=== PATIENT | female | born 1960 | race Hispanic/Latino ===

== ENCOUNTER 2017-05-28 02:00 | Emergency (ER) | payer SELFPAY ==
[2017-05-28] MEDS ORDERED: SODIUM CHLORIDE 0.9% 1000ML 1,000 ML IVS ONE (02:13)
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
[2017-05-28 02:32] VITALS: TEMP 98.8
--- NOTE | 2017-05-28 02:41 | CT ---
Procedure: CT HEAD WITHOUT IV CONTRAST Exam Date: 05/28/2017 Ordering Provider: Wing Larios Clinical Indication: ams, dizziness, fall with headache Comparison: None Technique: Using a helical scanner, sequential axial imaging of the brain was obtained without the administration of intravenous contrast. The exam was obtained from the skull base to vertex. This exam was performed according to our departmental dose optimization program which includes use of automated exposure control, adjustment of the mA and/or kV according to patient size and/or use of iterative reconstruction technique. Findings: Ventricular size and configuration are normal. There is no midline shift or hydrocephalus. There is no acute intracranial hemorrhage or mass effect. There is no acute infarct. Cortical rodriguez matter, subcortical white matter, and periventricular white matter have normal appearance. The calvarium is intact. There is no fracture. There is no lytic or sclerotic lesion. The visualized paranasal sinuses and mastoid air cells are unremarkable. IMPRESSION: No acute intracranial abnormality demonstrated. 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
[2017-05-28] MEDS ORDERED: POTASSIUM CHLORIDE INJ 40 MEQ 40 MEQ in SODIUM CHLORIDE 0.9% 250ML 250 ML IVPB ONE (02:50)
[2017-05-28] MEDS ORDERED: POTASSIUM CHLORIDE ELIXIR 20 MEQ/15 ML UD PO ONE (02:50)
[2017-05-28] MEDS ORDERED: SODIUM CHLORIDE 0.9% 250ML 250 ML ONE (03:02)
[2017-05-28] MEDS ORDERED: POTASSIUM CHLORIDE 40mEq 20ML VIAL ONE (03:02)
[2017-05-28 03:36] VITALS: O2SAT 99
[2017-05-28 08:28] VITALS: BP 161/83
== END 2017-05-28 08:51 | disposition home or self-care (01) ==
LOC: ER 02:00
DX: T88.7XXA Unspecified adverse effect of drug or medicament, initial encounter (principal); E87.6 Hypokalemia; W19.XXXA Unspecified fall, initial encounter; Y92.099 Unspecified place in other non-institutional residence as the place of occurrence of the external cause
CPT/HCPCS: 36415; 70450; 80053; 80156; 80307; 80320; 81001; 82550; 82553; 83735; 84443; 84484; 84703; 85025; 85651; J3480; J7030; J7050

== ENCOUNTER → 2017-06-01 | Outpatient (CLI) | payer SELFPAY | END | disposition home or self-care (01) | LOC: LAB.O 12:04 | PROVIDERS: ATTEND Nurse Practitioner Family | DX: G50.0 Trigeminal neuralgia (principal); R94.6 Abnormal results of thyroid function studies; E87.6 Hypokalemia ==

== ENCOUNTER 2017-06-06 09:38 | Emergency (ER) | payer SELFPAY ==
--- NOTE | 2017-06-06 10:18 | ED.PDOC ---
History of Present Illness - General Chief Complaint: Dental/Mouth Stated Complaint: Left facial swelling Time Seen by Provider: 06/06/17 10:00 Source: RN notes reviewed Exam Limitations: language barrier, other - History of Present Illness Initial Comments: 56 year Female presents to the ED with chief complaints of pain in the Left side of the face for the past 15 days She has been diagnosed with Trigeminal Neuralgia approximately 9 years ago She has been treated with Gabapentin and Tegretol But she states it was helping but not in the past 2 weeks Timing/Duration: intermittent Improving Factors: nothing Worsening Factors: cold therapy, eating Associated Symptoms: denies symptoms Allergies/Adverse Reactions: Allergies NO KNOWN ALLERGY Allergy (Verified 05/28/17 02:32) Home Medications: Ambulatory Orders Gabapentin [Neurontin] 100 mg PO BID 08/17/15 Carbamazepine [Tegretol] 200 mg PO BID 06/06/17 Tramadol HCl [Ultram] 50 mg PO Q6H PRN #30 tab 06/06/17 Review of Systems - Review of Systems Constitutional: States: no symptoms reported EENTM: States: see HPI Respiratory: States: no symptoms reported Cardiology: States: no symptoms reported Gastrointestinal/Abdominal: States: no symptoms reported Genitourinary: States: no symptoms reported Musculoskeletal: States: no symptoms reported Skin: States: no symptoms reported Neurological: States: no symptoms reported Endocrine: States: no symptoms reported Hematologic/Lymphatic: States: no symptoms reported Past Medical History (General) - Patient Medical History Hx Stroke: No Hx Dementia: No Hx Asthma: No Hx of COPD: No Hx Cardiac Disorders: No Hx Congestive Heart Failure: No Hx Pacemaker: No Hx Hypertension: No Hx Thyroid Disease: No Hx Diabetes: No Hx Gastroesophageal Reflux: No Hx Renal Disease: No Hx Cancer: No Hx of HIV: No Hx Hepatitis C: No Hx MRSA: No - Vaccination History Hx Tetanus, Diphtheria Vaccination: No Hx Influenza Vaccination: No Hx Pneumococcal Vaccination: No - Social History Hx Tobacco Use: No Hx Chewing Tobacco Use: No Hx Alcohol Use: No Hx Substance Use: No Hx Substance Use Treatment: No Hx Depression: No Hx Physical Abuse: No Hx Emotional Abuse: No Hx Suspected Abuse: No - Female History Patient : No Family Medical History - Family History Father Family History: Unknown Hx Family Asthma: No Hx Family Congestive Heart Failure: No Hx Family Hypertension: No Hx Family Stroke: No Hx Cardiac Disease: No Physical Exam - Physical Exam General Appearance: Alert, Obvious distress, Well Developed, Well Groomed, Well Hydrated Eye Exam: bilateral normal Ears, Nose, Throat: hearing grossly normal Neck: non-tender, full range of motion, supple Respiratory: chest non-tender, lungs clear, normal breath sounds, no respiratory distress, no accessory muscle use Cardiovascular/Chest: normal peripheral pulses, regular rate, rhythm, no edema, no gallop, no JVD, no murmur Peripheral Pulses: radial,right: 2+, radial,left: 2+, femoral,right: 2+, femoral ,left: 2+, dorsalis pedis,right: 2+, dorsalis pedis,left: 2+ Gastrointestinal/Abdominal: normal bowel sounds, non tender, soft, no organomegaly, no pulsatile mass Back Exam: normal inspection, no CVA tenderness, no vertebral tenderness Extremity: normal range of motion, non-tender, normal inspection 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 Copy, Patient Portal Self Enrollment Instructions: DI for Mouth Pain Prescriptions: Tramadol HCl [Ultram] 50 mg PO Q6H PRN #30 tab PRN Reason: Pain Home Medications: Ambulatory Orders Gabapentin [Neurontin] 100 mg PO BID 08/17/15 Carbamazepine [Tegretol] 200 mg PO BID 06/06/17 Tramadol HCl [Ultram] 50 mg PO Q6H PRN #30 tab 06/06/17
[2017-06-06] MEDS ORDERED: KETOROLAC TROMETHAMINE INJ 60 MG/2 ML VIAL IM ONE (10:19)
[2017-06-06] MEDS ORDERED: DEXAMETHASONE INJ 10 MG/ML VIAL IM ONE (10:21)
[2017-06-06 11:39] VITALS: BP 134/78; TEMP 97.5; O2SAT 98
== END 2017-06-06 11:18 | disposition home or self-care (01) ==
LOC: ER 09:38
DX: G50.0 Trigeminal neuralgia (principal); Z79.899 Other long term (current) drug therapy
CPT/HCPCS: J1100; J1885

== ENCOUNTER 2019-01-09 18:47 | Emergency (ER) | payer SELFPAY ==
[2019-01-09] MEDS ORDERED: cloNIDine HCL 0.1 MG TAB PO ONE (19:01)
[2019-01-09 19:27] VITALS: TEMP 99.3
--- NOTE | 2019-01-09 19:44 | RAD ---
EXAM: Chest,1 View CLINICAL INDICATION: 58-year-old female with headache and blurry vision. Fall. TECHNIQUE: Single view, AP portable chest was obtained. COMPARISON: None. FINDINGS: Unremarkable cardiac and mediastinal silhouette. Heart size is normal. Lungs are clear without focal opacity, pneumothorax or pleural effusions. Elevation of the RIGHT hemidiaphragm. The visualized bones are within normal limits, of chest radiograph technique, however if there is clinical concern for bone injury, dedicated rib series or CT chest is recommended. IMPRESSION: No acute cardiopulmonary abnormalities. Electronically signed by: Ambar Mario MD 01/09/2019 7:42 PM CDT
--- NOTE | 2019-01-09 19:44 | CT ---
EXAM DESCRIPTION: Head CLINICAL HISTORY: 58 years Female headache blurry vision COMPARISON: None TECHNIQUE: Images were obtained in axial, sagittal, and coronal planes. This exam was performed according to our departmental dose-optimization program which includes use of Automated Exposure Control, adjustment of the mA and/or kV according to patient size and/or use of iterative reconstruction technique. FINDINGS: Ventricular system appears normal. No abnormal areas of increased or decreased attenuation are seen involving the brain parenchyma. No extra-axial fluid collections noted. Mild mucosal thickening maxillary antra bilaterally. No evidence for skull fracture. Symmetric aeration mastoid air cells bilaterally. IMPRESSION: No acute intracranial abnormality. No evidence for hemorrhage, mass lesion, or large acute infarction. Electronically signed by: Layne Puga MD 01/09/2019 7:42 PM CDT
--- NOTE | 2019-01-09 21:04 | RAD ---
EXAM: Pelvis (accession [id number]), Hip,Right 2 Views (accession [id number]) CLINICAL INDICATION: 50-year-old female with RIGHT hip pain for two years. COMPARISON: None. TECHNIQUE: Single frontal view of the pelvis, two views of the RIGHT hip were obtained in AP and lateral projection FINDINGS: There is no fracture or dislocation. The joint spaces are preserved. No soft tissue abnormalities are seen. IMPRESSION: No acute radiographic abnormality. Electronically signed by: Ambar Mario MD 01/09/2019 9:02 PM CDT
--- NOTE | 2019-01-09 21:04 | RAD ---
EXAM: Pelvis (accession [id number]), Hip,Right 2 Views (accession [id number]) CLINICAL INDICATION: 50-year-old female with RIGHT hip pain for two years. COMPARISON: None. TECHNIQUE: Single frontal view of the pelvis, two views of the RIGHT hip were obtained in AP and lateral projection FINDINGS: There is no fracture or dislocation. The joint spaces are preserved. No soft tissue abnormalities are seen. IMPRESSION: No acute radiographic abnormality. Electronically signed by: Ambar Mario MD 01/09/2019 9:02 PM CDT
--- NOTE | 2019-01-09 21:05 | RAD ---
EXAM: Lumbar Spine 3 Views CLINICAL INDICATION: 50-year-old female with pain for two years. TECHNIQUE: Five views of the lumbar spine were obtained in AP, lateral, bilateral oblique and spot projections. COMPARISON: None. FINDINGS: Alignment of the lumbar spine is within normal limits. There is no subluxation or fracture deformity. Morphology of the vertebral bodies and intervertebral disc spaces is compatible with mild degenerative change with minimal ventral vertebral body osteophytes. The remainder of the visualized bones are within normal limits. IMPRESSION: No acute radiographic abnormality. Electronically signed by: Ambar Mario MD 01/09/2019 9:03 PM CDT
[2019-01-09] MEDS ORDERED: HYDROcodone 5MG/APAP 325MG 1 EA TAB PO ONE (21:38)
[2019-01-09] MEDS ORDERED: LISINOPRIL 10 MG TAB PO ONE (22:07)
--- NOTE | 2019-01-09 22:12 | ED.PDOC ---
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 She does have a history of hypertension but has not been taking any medications for it. She does have a history of trigeminal neuralgia on the right and takes carbamazepine and gabapentin. No focal neurological changes. She feels like her vision gets a little bit blurry when she gets dizzy. She did have one falling incident yesterday and thinks she might have hit the back of her head. Physical exam is largely benign. She gets a little more dizzy when she turns her head to the left but not significantly so. She has had some mild nausea but no vomiting. She has some chronic right hip to buttock pain that has been present for the last 2-3 years. It is worse when sitting up or laying down but better when standing. Severity: moderate Improving Factors: nothing Worsening Factors: nothing Associated Symptoms: headaches Allergies/Adverse Reactions: Allergies NO KNOWN ALLERGY Allergy (Verified 05/28/17 02:32) Home Medications: Ambulatory Orders Gabapentin [Neurontin] 200 mg PO BID 08/17/15 Carbamazepine [Tegretol] 200 mg PO BID 06/06/17 Tramadol HCl [Ultram] 50 mg PO Q6H PRN #30 tab 06/06/17 Lisinopril & Hydrochlorothiazi [Lisinopril/Hctz 20-12.5 mg] 1 tab PO DAILY #30 tab 01/09/19 Review of Systems - Review of Systems Constitutional: States: malaise EENTM: States: blurred vision Respiratory: States: no symptoms reported Cardiology: States: no symptoms reported Gastrointestinal/Abdominal: States: no symptoms reported Genitourinary: States: no symptoms reported Musculoskeletal: States: joint pain Skin: States: no symptoms reported Neurological: States: headache, other - dizziness Endocrine: States: no symptoms reported All other Systems: No Change from Baseline Past Medical History (General) - Patient Medical History Hx Seizures: No Hx Stroke: No Hx Dementia: No Hx Asthma: No Hx of COPD: No Hx Cardiac Disorders: No Hx Congestive Heart Failure: No Hx Pacemaker: No Hx Hypertension: Yes Hx Thyroid Disease: No Hx Diabetes: No Hx Gastroesophageal Reflux: No Hx Renal Disease: No Hx Cancer: No Hx of HIV: No Hx Hepatitis C: No Hx MRSA: No - Vaccination History Hx Tetanus, Diphtheria Vaccination: No Hx Influenza Vaccination: No Hx Pneumococcal Vaccination: No Immunizations Up to Date: No - Social History Hx Tobacco Use: No Hx Chewing Tobacco Use: No Hx Alcohol Use: No Hx Substance Use: No Hx Substance Use Treatment: No Hx Depression: No Hx Physical Abuse: No Hx Emotional Abuse: No Hx Suspected Abuse: No - Female History Patient is a Female of Child Bearing Age (10 -59 yrs old): Yes Patient : No Family Medical History - Family History Father Family History: Unknown Hx Family Asthma: No Hx Family Congestive Heart Failure: No Hx Family Hypertension: No Hx Family Stroke: No Hx Cardiac Disease: No Son Family History: No Known Physical Exam - Physical Exam General Appearance: Alert, No apparent distress Eye Exam: bilateral normal Ears, Nose, Throat: hearing grossly normal - right ear cerumen disimpaction performed., normal pharynx Neck: full range of motion, supple Respiratory: lungs clear, normal breath sounds, no respiratory distress, no accessory muscle use Cardiovascular/Chest: normal peripheral pulses, regular rate, rhythm, no edema Peripheral Pulses: radial,right: 2+, radial,left: 2+, dorsalis pedis,right: 2+, dorsalis pedis,left: 2+ Gastrointestinal/Abdominal: non tender, soft Rectal Exam: deferred Back Exam: no CVA tenderness, no vertebral tenderness, other - the patient does have tenderness to palpation over the right piriformis muscle. 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, alert, normal mood/affect, oriented x 3 Skin Exam: normal color - I see no objective evidence of edema but the patient does feel that she has swelling in her feet and hands Comments: Vital Signs - 24 hr 01/09/19 01/09/19 01/09/19 18:54 19:36 19:39 Temperature 99.3 F Pulse Rate 85 Pulse Rate [ 85 85 79 Right Radial] Respiratory 17 17 20 Rate Blood Pressure 215/94 168/76 [Left Arm] O2 Sat by Pulse 96 97 Oximetry 01/09/19 01/09/19 01/09/19 20:04 20:36 21:14 Temperature Pulse Rate 70 64 Pulse Rate [ 72 66 Right Radial] Respiratory 22 16 Rate Blood Pressure 153/68 131/66 132/67 [Left Arm] O2 Sat by Pulse 96 97 Oximetry Laboratory Tests 01/09/19 01/09/19 01/09/19 19:15 19:15 19:15 WBC 7.0 RBC 4.45 Hgb 13.1 Hct 38.9 MCV 87.5 MCH 29.3 MCHC 33.5 RDW 13.2 Plt Count 256 MPV 7.3 L Absolute Neuts (auto) 3.70 Absolute Lymphs (auto) 2.50 Absolute Monos (auto) 0.50 Absolute Eos (auto) 0.30 Absolute Basos (auto) 0.00 Neutrophils % 53.3 Lymphocytes % 35.9 Monocytes % 6.5 Eosinophils % 3.7 Basophils % 0.6 ESR 9 Sodium 137 Potassium 4.1 Chloride 103 Carbon Dioxide 26 Anion Gap 12.1 BUN 10 Creatinine 0.76 BUN/Creatinine Ratio 13.2 Random Glucose 112 H Serum Osmolality 273.6 L Calcium 8.5 Magnesium 2.2 Total Bilirubin < 0.2 L AST 31 ALT 37 Alkaline Phosphatase 127 H Creatine Kinase 108 CK-MB (CK-2) 1.4 CK-MB (CK-2) % Not Reportable Troponin I < 0.02 B-Natriuretic Peptide 58.6 Serum Total Protein 6.9 Albumin 3.8 Globulin 3.1 Albumin/Globulin Ratio 1.2 TSH 5.91 H Urine Color Urine Appearance Urine pH Ur Specific [place] Urine Protein Urine Glucose (UA) Urine Ketones Urine Blood Urine Nitrite Urine Bilirubin Urine Urobilinogen Ur Leukocyte Esterase Urine RBC Urine WBC Ur Epithelial Cells Urine Bacteria 01/09/19 20:05 WBC RBC Hgb Hct MCV MCH MCHC RDW Plt Count MPV Absolute Neuts (auto) Absolute Lymphs (auto) Absolute Monos (auto) Absolute Eos (auto) Absolute Basos (auto) Neutrophils % Lymphocytes % Monocytes % Eosinophils % Basophils % ESR Sodium Potassium Chloride Carbon Dioxide Anion Gap BUN Creatinine BUN/Creatinine Ratio Random Glucose Serum Osmolality Calcium Magnesium Total Bilirubin AST ALT Alkaline Phosphatase Creatine Kinase CK-MB (CK-2) CK-MB (CK-2) % Troponin I B-Natriuretic Peptide Serum Total Protein Albumin Globulin Albumin/Globulin Ratio TSH Urine Color Yellow Urine Appearance Clear Urine pH 8.0 H Ur Specific [place] 1.020 Urine Protein Negative Urine Glucose (UA) Negative Urine Ketones Negative Urine Blood Negative Urine Nitrite Negative Urine Bilirubin Negative Urine Urobilinogen 0.2 Ur Leukocyte Esterase Small H Urine RBC 0-1 Urine WBC 3-5 H Ur Epithelial Cells 3-5 Urine Bacteria Rare EKG shows normal axis, normal sinus rhythm at 81 bpm, normal R-wave progression, left atrial dilation, Q-wave with inverted T in lead 3 only. Normal QT interval. Chest x-ray appears benign. Head CT appears benign. X-ray of the lumbar spine, right hip and pelvis showed no acute pathology. see reports for details of above.. Progress - Progress Progress: 01/09/19 22:15 the patient's a 58-year-old female presenting to the emergency room with headache dizziness and markedly uncontrolled hypertension. Blood pressure did respond nicely to clonidine. The patient received a dose of pain medications and with control of the blood pressure and the pain, she is feeling better. The patient is going to be placed on lisinopril hydrochlorothiazide 20/12.5 daily. She needs to keep a blood pressure log with readings at rest 3 times daily and take this to her primary care doctor in 1 week. She will likely need to be increased on medications. Imaging and lab work otherwise look reassuring. The patient likely has piriformis syndrome on the right. She does need to do stretching exercises on that hip. she needs to follow up with her primary care doctor later this week. - EKG/XRAY/CT CT Ordered: Yes Departure - Departure Clinical Impression: Hypertensive urgency, Piriformis syndrome of right side Headache Qualifiers: Headache chronicity pattern: acute headache Intractability: not intractable Disposition: Discharge to Home or Self Care Condition: Fair Departure Forms: ED Discharge - Pt. Copy, Patient Portal Self Enrollment Instructions: DI for Headache, High Blood Pressure Emergencies, Ischiogluteal Bursitis Exercises, Hip Bursitis Exercises, Sciatica Exercises Diet: regular diet Activity: increase activity as tolerated Prescriptions: Lisinopril & Hydrochlorothiazi [Lisinopril/Hctz 20-12.5 mg] 1 tab PO DAILY #30 tab Home Medications: Ambulatory Orders Gabapentin [Neurontin] 200 mg PO BID 08/17/15 Carbamazepine [Tegretol] 200 mg PO BID 06/06/17 Tramadol HCl [Ultram] 50 mg PO Q6H PRN #30 tab 06/06/17 Lisinopril & Hydrochlorothiazi [Lisinopril/Hctz 20-12.5 mg] 1 tab PO DAILY #30 tab 01/09/19 Additional Instructions: the patient's a 58-year-old female presenting to the emergency room with headache dizziness and markedly uncontrolled hypertension. Blood pressure did respond nicely to clonidine. The patient received a dose of pain medications and with control of the blood pressure and the pain, she is feeling better. The patient is going to be placed on lisinopril hydrochlorothiazide 20/12.5 daily. She needs to keep a blood pressure log with readings at rest 3 times daily and take this to her primary care doctor in 1 week. She will likely need to be increased on medications. Imaging and lab work otherwise look reassuring. The patient likely has piriformis syndrome on the right. She does need to do stretching exercises on that hip. she needs to follow up with her [place] care doctor later this week. Print Language: Sammarinese
[2019-01-09 22:17] VITALS: BP 130/71; O2SAT 98
== END 2019-01-09 22:35 | disposition home or self-care (01) ==
LOC: ER 18:47
DX: I16.0 Hypertensive urgency (principal); R51 Headache; G57.01 Lesion of sciatic nerve, right lower limb; Z79.899 Other long term (current) drug therapy

== ENCOUNTER → 2019-01-24 | Outpatient (CLI) | payer OTHER ==
--- NOTE | 2019-01-24 15:19 | CT ---
EXAM DESCRIPTION: Head: Computed Tomography. CLINICAL HISTORY: HEADACHE. Persistent. COMPARISON: CT scan of the head without contrast 01/09/2019. TECHNIQUE: Non-helical axial scans through the skull and brain, at 5 x 20 mm intervals, non-contrast. Coronal and sagittal 2.0 mm reconstructions. Also axial reconstructions 2.5 x 20 mm. Total Exam DLP: 859.97 mGy-cm. This exam was performed according to our departmental dose-optimization program which includes automated exposure control, adjustment of the mA and/or kV according to patient size and/or use of iterative reconstruction technique; to reduce radiation dose to as low as reasonably achievable (ALARA). FINDINGS: No hemorrhage, no mass-effect, and no midline shift. Normal rodriguez-white matter differentiation. No abnormal radiodense material in the brain parenchyma. Vascular calcifications not present; physiologic calcifications in the pineal gland and choroid plexus. No effacement or displacement of the ventricles, CSF spaces, or subdural spaces. No extra axial fluid collection or hemorrhage. No gross abnormalities of the bony calvarium. Included paranasal sinuses and mastoid air cells are well - aerated. IMPRESSION: 1. No hemorrhage, no mass effect, no midline shift. Normal CT scan of the head without IV contrast. Stable since the prior study [address] scans are insensitive for detecting small CVAs in the first 24 hours after onset. Evaluation of the brain stem is also limited. If symptoms persist, consider NON-EMERGENT MRI scan of the brain with diffusion imaging. Electronically signed by: Toney Lincoln MD 01/24/2019 3:17 PM CDT
== END ==
LOC: CT 12:12
PROVIDERS: ATTEND Nurse Practitioner Family
DX: R51 Headache (principal)

== ENCOUNTER → 2019-02-04 | Outpatient (CLI) | payer OTHER | LOC: YCFC.O 17:11 | PROVIDERS: ATTEND Nurse Practitioner Family | DX: E03.9 Hypothyroidism, unspecified (principal) ==

== ENCOUNTER 2019-06-22 22:05 | Observation (INO) | payer SELFPAY ==
[2019-06-22] MEDS ORDERED: ALUM & MAG HYDROX-SIMETHICONE 30 ML, LIDOCAINE VISCOUS 2% 15 ML PO ONE ×2 (22:28)
--- NOTE | 2019-06-22 22:31 | ED.PDOC ---
History of Present Illness - General Chief Complaint: Back Pain or Injury Stated Complaint: lower back Time Seen by Provider: 06/22/19 22:16 Source: patient Exam Limitations: language barrier - History of Present Illness Initial Comments: 58 yo F who presents for epigastric abd pain, onset this morning, worsening after dinner tonight where she ate beans and cactus, sharp, radiates around to the LUQ, constant since this evening. Associated nausea, diarrhea, generalized weakness. Was seen at PCP recently for similar sx, was told she needs an MRI of her back. Denies f/c, cough, congestion, CP, SOB, vomiting, blood in stool, urinary sx, focal weakness, numbness, back pain. Denies ETOH. Allergies/Adverse Reactions: Allergies NO KNOWN ALLERGY Allergy (Verified 05/28/17 02:32) Home Medications: Ambulatory Orders Gabapentin [Neurontin] 100 mg PO TID 08/17/15 Carbamazepine [Tegretol] 200 mg PO QID 06/06/17 Tramadol HCl [Ultram] 50 mg PO Q6H PRN #30 tab 06/06/17 Lisinopril & Hydrochlorothiazi [Lisinopril/Hctz 20-12.5 mg] 1 tab PO DAILY #30 tab 01/09/19 Levothyroxine Sodium [Synthroid] 75 mcg PO DAILY 06/23/19 RX: Atenolol [Tenormin] 25 mg PO DAILY 06/23/19 Review of Systems - Review of Systems Constitutional: States: weakness - generalized. Denies: chills, fever EENTM: Denies: nose congestion, throat pain Respiratory: Denies: cough, short of breath Cardiology: Denies: chest pain, edema, palpitations Gastrointestinal/Abdominal: States: abdominal pain, diarrhea, nausea. Denies: constipation, vomiting Genitourinary: Denies: dysuria, frequency, hematuria Musculoskeletal: Denies: back pain, neck pain Skin: Denies: lesions, rash Neurological: Denies: headache, numbness Endocrine: Denies: increased thirst, increased urine Past Medical History (General) - Patient Medical History Hx Seizures: No Hx Stroke: No Hx Dementia: No Hx Asthma: No Hx of COPD: No Hx Cardiac Disorders: No Hx Congestive Heart Failure: No Hx Pacemaker: No Hx Hypertension: Yes Hx Thyroid Disease: No Hx Diabetes: No Hx Gastroesophageal Reflux: No Hx Renal Disease: No Hx Cancer: No Hx of HIV: No Hx Hepatitis C: No Hx MRSA: No Surgical History: no surgical history - Vaccination History Hx Tetanus, Diphtheria Vaccination: No Hx Influenza Vaccination: No Hx Pneumococcal Vaccination: No - Social History Hx Tobacco Use: No Hx Chewing Tobacco Use: No Hx Alcohol Use: No Hx Substance Use: No Hx Substance Use Treatment: No Hx Depression: No Hx Physical Abuse: No Hx Emotional Abuse: No Hx Suspected Abuse: No - Female History Patient : No Family Medical History - Family History Father Family History: Unknown Hx Family Asthma: No Hx Family Congestive Heart Failure: No Hx Family Hypertension: No Hx Family Stroke: No Hx Cardiac Disease: No Son Family History: No Known Physical Exam - Physical Exam General Appearance: Agitated, Comfortable, No apparent distress, Well Developed, Well Nourished Eye Exam: bilateral normal Ears, Nose, Throat: normal ENT inspection Neck: full range of motion, supple Respiratory: chest non-tender, lungs clear, normal breath sounds, no respiratory distress, no accessory muscle use Cardiovascular/Chest: normal peripheral pulses, regular rate, rhythm, no edema, no gallop, no JVD, no murmur Peripheral Pulses: radial,right: 2+, radial,left: 2+ Gastrointestinal/Abdominal: normal bowel sounds, soft, no organomegaly, no pulsatile mass, tenderness - epigastric, RUQ, other - no distention, guarding, rebound Back Exam: normal inspection, no CVA tenderness, no vertebral tenderness Extremity: normal range of motion, non-tender, normal inspection, no pedal edema, no calf tenderness, normal capillary refill 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 Fernandez requests treatment with pain medication, if pain resolves, d/c home to have outpt follow up with US. If pain still present, can admit and obtain US in am. 06/23/19 01:26 Pt still in 2/10 pain, RUQ TTP on exam. Discussed with Dr. Fernandez, requests admission, US in am. Subsequently discussed with Jose Armando midlevel for hospitalist, who accepts for admission. Patient re-evaluated and updated. Discussed all results with pt and family and plan to admit. I have discussed the reason for inpatient care in detail with the patient and pt is willing to be admitted and consents to admission for further evaluation, workup, and care. Diana Hernandez MD Emergency Medicine Physician Billing Number [id number] - Results/Orders Results/Orders: Laboratory Results - last 24 hr 06/22/19 06/22/19 06/22/19 22:22 22:30 22:30 WBC 7.5 RBC 4.85 Hgb 14.3 Hct 42.3 MCV 87.2 MCH 29.5 MCHC 33.8 RDW 13.1 Plt Count 261 MPV 8.0 Absolute Neuts (auto) 3.70 Absolute Lymphs (auto) 3.00 Absolute Monos (auto) 0.60 Absolute Eos (auto) 0.10 Absolute Basos (auto) 0.10 Neutrophils % 49.6 Lymphocytes % 40.3 Monocytes % 7.8 Eosinophils % 1.2 Basophils % 1.1 Sodium 137 Potassium 4.1 Chloride 102 Carbon Dioxide 28 Anion Gap 11.1 L BUN 17 Creatinine 0.62 BUN/Creatinine Ratio 27.4 H Random Glucose 122 H Serum Osmolality 276.7 Calcium 9.4 Total Bilirubin 0.3 AST 64 H ALT 78 H Alkaline Phosphatase 142 H Troponin I Serum Total Protein 8.2 Albumin 4.7 Globulin 3.5 Albumin/Globulin Ratio 1.3 Amylase Lipase Urine Color Yellow Urine Appearance Cloudy Urine pH 5.5 Ur Specific [place] 1.020 Urine Protein Negative Urine Glucose (UA) Negative Urine Ketones Negative Urine Blood Trace-intact H Urine Nitrite Negative Urine Bilirubin Negative Urine Urobilinogen 0.2 Ur Leukocyte Esterase Negative Urine RBC 1-3 Urine WBC 10-20 H Ur Epithelial Cells 0-1 Urine Bacteria 1+ 06/22/19 06/23/19 06/23/19 22:30 00:00 01:50 WBC RBC Hgb Hct MCV MCH MCHC RDW Plt Count MPV Absolute Neuts (auto) Absolute Lymphs (auto) Absolute Monos (auto) Absolute Eos (auto) Absolute Basos (auto) Neutrophils % Lymphocytes % Monocytes % Eosinophils % Basophils % Sodium Potassium Chloride Carbon Dioxide Anion Gap BUN Creatinine BUN/Creatinine Ratio Random Glucose Serum Osmolality Calcium Total Bilirubin AST ALT Alkaline Phosphatase Troponin I < 0.02 Serum Total Protein Albumin Globulin Albumin/Globulin Ratio Amylase 71 Lipase 56 H Urine Color Urine Appearance Urine pH Ur Specific [place] Urine Protein Urine Glucose (UA) Urine Ketones Urine Blood Urine Nitrite Urine Bilirubin Urine Urobilinogen Ur Leukocyte Esterase Urine RBC Urine WBC Ur Epithelial Cells Urine Bacteria CT abd/pelvis: EXAM: CT Abdomen and Pelvis With Intravenous Contrast CLINICAL HISTORY: The patient is 58 years old and is Female; abd pain TECHNIQUE: Axial computed tomography images of the abdomen and pelvis with intravenous contrast. Sagittal and coronal reformatted images were created and reviewed. This CT exam was performed using one or more of the following dose reduction techniques: automated exposure control, adjustment of the mA and/or kV according to patient size, and/or use of iterative reconstruction technique. COMPARISON: No relevant prior studies available. FINDINGS: LUNG BASES: Minimal dependent densities in the lung bases are present. ABDOMEN: LIVER: There is a diffuse decrease in hepatic parenchymal density, consistent with fatty infiltration. GALLBLADDER AND BILE DUCTS: The gallbladder is significantly distended. No calcified gallstones or ductal dilatation is noted. PANCREAS: No ductal dilation. No mass. SPLEEN: Unremarkable. ADRENALS: Unremarkable. No mass. KIDNEYS AND URETERS: Unremarkable. The kidneys enhance symmetrically. No obstructing renal or ureteral calculus is seen. No hydronephrosis or hydroureter. No perinephric fluid or stranding. STOMACH AND BOWEL: The stomach is minimally distended with food contents. Several proximal small bowel loops are fluid-filled and prominent. The small bowel distally is normal in caliber. A definite transition point is not visualized. A moderate amount of stool is present throughout colon. There is no mucosal thickening or evidence of bowel obstruction. PELVIS: APPENDIX: The appendix is normal in caliber without surrounding inflammation. BLADDER: Unremarkable. No mass. REPRODUCTIVE: Unremarkable as visualized. ABDOM EN and PELVIS: INTRAPERITONEAL SPACE: Unremarkable. No free air. No significant fluid collection. BONES/JOINTS: No acute fracture. SOFT TISSUES: The soft tissues are normal. VASCULATURE: Unremarkable. No abdominal aortic aneurysm. LYMPH NODES: Unremarkable. No enlarged lymph nodes. IMPRESSION: 1. Findings suggestive of a mild enteritis involving the proximal small bowel. 2. Distended gallbladder. If there is clinical concern for acute gallbladder pathology, findings could be further evaluated with ultrasound or HIDA scan. Electronically signed by: Renetta Paris MD 06/22/2019 11:47 PM PROTEIN SCIENTIST Vital Signs - 24 hr 06/22/19 06/22/19 06/22/19 22:11 23:05 23:50 Temperature 97.1 F L Pulse Rate [ 67 66 69 Left Apical] Respiratory 16 14 14 Rate Blood Pressure 184/81 88/58 158/60 [Left Arm] O2 Sat by Pulse 97 98 96 Oximetry 06/23/19 06/23/19 00:00 01:00 Temperature Pulse Rate [ 60 63 Left Apical] Respiratory 14 14 Rate Blood Pressure 138/64 128/58 [Left Arm] O2 Sat by Pulse 98 98 Oximetry - EKG/XRAY/CT EKG: Sinus Departure - Departure Clinical Impression: Acute abdominal pain, Gallbladder dilatation, Enteritis Pancreatitis Qualifiers: Chronicity: acute Pancreatitis type: unspecified pancreatitis type Acute pancreatitis complication: unspecified Qualified Code(s): K85.90 - Acute pancreatitis without necrosis or infection, unspecified Time of Disposition: 01:35 Disposition: Admit Patient Condition: Fair Home Medications: Ambulatory Orders Gabapentin [Neurontin] 100 mg PO TID 08/17/15 Carbamazepine [Tegretol] 200 mg PO QID 06/06/17 Tramadol HCl [Ultram] 50 mg PO Q6H PRN #30 tab 06/06/17 Lisinopril & Hydrochlorothiazi [Lisinopril/Hctz 20-12.5 mg] 1 tab PO DAILY #30 tab 01/09/19 Levothyroxine Sodium [Synthroid] 75 mcg PO DAILY 06/23/19 RX: Atenolol [Tenormin] 25 mg PO DAILY 06/23/19
[2019-06-22] MEDS ORDERED: LIDOCAINE HCL 2% (MOUTH-THROAT) 15 ML UD ONE (22:35)
[2019-06-22] MEDS ORDERED: ALUM & MAG HYDROX-SIMETHICONE 30 ML UD ONE (22:36)
--- NOTE | 2019-06-22 23:49 | CT ---
EXAM: CT Abdomen and Pelvis With Intravenous Contrast CLINICAL HISTORY: The patient is 58 years old and is Female; abd pain TECHNIQUE: Axial computed tomography images of the abdomen and pelvis with intravenous contrast. Sagittal and coronal reformatted images were created and reviewed. This CT exam was performed using one or more of the following dose reduction techniques: automated exposure control, adjustment of the mA and/or kV according to patient size, and/or use of iterative reconstruction technique. COMPARISON: No relevant prior studies available. FINDINGS: LUNG BASES: Minimal dependent densities in the lung bases are present. ABDOMEN: LIVER: There is a diffuse decrease in hepatic parenchymal density, consistent with fatty infiltration. GALLBLADDER AND BILE DUCTS: The gallbladder is significantly distended. No calcified gallstones or ductal dilatation is noted. PANCREAS: No ductal dilation. No mass. SPLEEN: Unremarkable. ADRENALS: Unremarkable. No mass. KIDNEYS AND URETERS: Unremarkable. The kidneys enhance symmetrically. No obstructing renal or ureteral calculus is seen. No hydronephrosis or hydroureter. No perinephric fluid or stranding. STOMACH AND BOWEL: The stomach is minimally distended with food contents. Several proximal small bowel loops are fluid-filled and prominent. The small bowel distally is normal in caliber. A definite transition point is not visualized. A moderate amount of stool is present throughout colon. There is no mucosal thickening or evidence of bowel obstruction. PELVIS: APPENDIX: The appendix is normal in caliber without surrounding inflammation. BLADDER: Unremarkable. No mass. REPRODUCTIVE: Unremarkable as visualized. ABDOMEN and PELVIS: INTRAPERITONEAL SPACE: Unremarkable. No free air. No significant fluid collection. BONES/JOINTS: No acute fracture. SOFT TISSUES: The soft tissues are normal. VASCULATURE: Unremarkable. No abdominal aortic aneurysm. LYMPH NODES: Unremarkable. No enlarged lymph nodes. IMPRESSION: 1. Findings suggestive of a mild enteritis involving the proximal small bowel. 2. Distended gallbladder. If there is clinical concern for acute gallbladder pathology, findings could be further evaluated with ultrasound or HIDA scan. Electronically signed by: Renetta Paris MD 06/22/2019 11:47 PM DIE STORAGE CLERK
[2019-06-23] MEDS ORDERED: KETOROLAC TROMETHAMINE INJ 30 MG/ML VIAL IV ONE (00:24)
[2019-06-23] MEDS ORDERED: SODIUM CHLORIDE 0.9% (FLUSH) 10 ML SYG IV PRN (01:36)
[2019-06-23] MEDS ORDERED: IV SET AND CAP CHANGE INJ INJ SCH (02:00)
[2019-06-23] MEDS ORDERED: cefTRIAXone SODIUM 1 GM VIAL ONE ×3 (02:09→19:55)
[2019-06-23] MEDS ORDERED: SODIUM CHLORIDE 0.9% 1000ML 0 ML ONE (02:09)
[2019-06-23] MEDS ORDERED: SODIUM CHLORIDE 0.9% 50ML 50 ML ONE ×2 (02:10→20:33)
[2019-06-23] MEDS: LACTATED RINGERS 1,000 ML IVS PRN ×2 (02:14→14:05)
[2019-06-23] MEDS: cefTRIAXone SODIUM 1 GM in SODIUM CHL 0.9% 50ML MIN-BAG+ 50 ML IVPB SCH (02:15)
--- NOTE | 2019-06-23 02:51 | HP ---
SUPERVISING PHYSICIAN: Haile Roca MD CHIEF COMPLAINT: Abdominal pain. HISTORY OF PRESENT ILLNESS: This is a 58-year-old female who came to the Emergency Room with abdominal pain. She is primarily Colombian-speaking only. Her primary care physician is Dr. Murdock at [facility]. Apparently, she states she has had diarrhea/loose bowel movements for the last 5 days or so. She denies any fever, but developed some abdominal pain in a band- like manner around the epigastric area, left and right upper quadrants. In the Emergency Room, she was seen and had a CT of the abdomen. The CT of the abdomen showed findings suggestive of mild enteritis involving the proximal small bowel and distended gallbladder. Lab showed a normal white count, however, there was mild elevation in transaminases at 64 on the AST and 78 on the ALT. Alkaline phosphatase 142, lipase 56, normal amylase. Urinalysis showed 10 to 20 WBCs as well and was cloudy. Dr. Fernandez was called from the Emergency Room and he recommended admission and NPO with ultrasound today. At the time of examination, the patient was in no distress. She did receive some Toradol in the Emergency Room and I resumed Toradol for pain control. In the event that she needs to have a HIDA scan, she cannot have any narcotic use. PAST MEDICAL HISTORY: 1. Hypertension. 2. Hypothyroidism. 3. Trigeminal neuralgia. PAST SURGICAL HISTORY: None. MEDICATIONS: 1. Atenolol 25 mg daily. 2. Tegretol 200 mg p.o. q.i.d. 3. Neurontin 100 mg p.o. t.i.d. 4. Synthroid 75 mcg p.o. daily. 5. Lisinopril/HCTZ 20/12.5 mg 1 tablet daily. 6. Tramadol 50 mg p.o. q.6h. p.r.n. for pain. ALLERGIES: NO KNOWN DRUG ALLERGIES. FAMILY HISTORY: She states her mother had hypertension. SOCIAL HISTORY: No smoking, no alcohol, no illicit drugs. REVIEW OF SYSTEMS: CONSTITUTIONAL: No fever or chills. No recent weight loss or weight gain. HEENT: No vision changes, ear pain, nasal congestion or throat pain. She does have chronic headaches. RESPIRATORY: No cough, hemoptysis or pleuritic chest pain. CARDIOVASCULAR: No chest pain, palpitations or peripheral edema. GASTROINTESTINAL: No nausea, vomiting. Positive for abdominal pain, diarrhea. No constipation. GENITOURINARY: No dysuria, frequency or flank pain. MUSCULOSKELETAL: She does complain of some back pain. No muscle cramps or joint swelling. SKIN: No rashes, lesions or wounds. ENDOCRINE: No polydipsia, polyuria or polyphagia. No heat or cold intolerance. NEUROLOGIC: No syncope, paresthesias or seizures. PHYSICAL EXAMINATION: VITAL SIGNS: Blood pressure 132/78. Heart rate 61. Respiratory rate 16. Temperature 97.4. Oxygen saturation 95%. GENERAL: Ms. Live is a 58-year-old female who is in no active distress currently. NEUROLOGIC: The patient is alert and oriented. LUNGS: Clear. CARDIOVASCULAR: Regular rate and rhythm. Normal S1, S2. ABDOMEN: Soft. No rebound tenderness. Some mild tenderness to palpation across the epigastric area, left and right upper quadrants. No lower quadrant tenderness. EXTREMITIES: Lower extremities with no significant edema. LABORATORY: Labs and films are as discussed in history of present illness. ASSESSMENT: 1. Abdominal pain. 2. Distended gallbladder with abnormal transaminases and lipase with concern for gallbladder disease and/or early pancreatitis. 3. Urinary tract infection. 4. Hypertension, controlled. 5. History of trigeminal neuralgia. 6. Hypothyroidism. PLAN: At this time, the patient is admitted to the Medical/Surgical Unit. I placed her on Rocephin for the urinary tract infection and on IV fluids. She is getting an abdominal sonogram this morning. Dr. Fernandez has now deferred to Dr. Porter to see the patient. We will keep her NPO and continue Toradol for pain management until we decide on whether or not to do a HIDA scan. Additionally, I have her on a proton pump inhibitor. [id number] [facility]
[2019-06-23] MEDS: PANTOPRAZOLE SODIUM IV 40 MG VIAL IV SCH (06:02)
[2019-06-23] MEDS: KETOROLAC TROMETHAMINE INJ 30 MG/ML VIAL IV PRN (10:15)
--- NOTE | 2019-06-23 11:08 | US ---
EXAM DESCRIPTION: Abdomen,Complete: Ultrasound. CLINICAL HISTORY: 58 years FemaleAbdominal pain COMPARISON: CT abdomen and pelvis on 22 June 2019. TECHNIQUE: Transabdominal scanning: grayscale and Doppler modes. FINDINGS: Gallbladder: Distended. No intraluminal stones or sludge. Small partial septation near the neck of the gallbladder.. Wall thickness 2.6 mm with no surrounding fluid, not dilated. Nontender with transducer pressure. Common bile duct: 5.2 mm normal caliber. Liver: Long axis right lobe 13.6 cm. Diffuse increased echogenicity. Normal caliber of the intrahepatic ducts. Vascularity not evaluated by Doppler. Smooth capsule with no ascites. Pancreas: Normal echogenicity of the included segments and duct not visualized. Abdominal aorta: Normal caliber from the proximal segment to the distal bifurcation. IVC: visualized; normal caliber. Spleen normal echogenicity; long axis measurement is 11.9 cm. cm. Right kidney: 9.3 cm long axis. Normal cortical echogenicity with minimal thinning, 11 mm. No echogenic stones or hydronephrosis. Left kidney: 10.1 cm long axis. Normal cortical thickness and echogenicity. No echogenic stones or hydronephrosis. IMPRESSION: 1. Fatty liver not enlarged. Vascularity not evaluated. Normal caliber of the ducts. Smooth capsule and no ascites. 2. Gallbladder distended with no stones or sludge. No wall thickening or fluid. Nontender. 3. Pancreas and left kidney unremarkable. Minimal cortical thinning of the right kidney with normal echogenicity. Normal caliber of the abdominal aorta and IVC. Electronically signed by: Toney Lincoln MD 06/23/2019 11:06 AM BURR MILL OPERATOR
[2019-06-23] MEDS ORDERED: SODIUM CHL 0.9% 50ML MIN-BAG+ 50 ML IVPB ONE ×2 (13:37→19:54)
[2019-06-23] MEDS ORDERED: ONDANSETRON INJ 4 MG/2 ML VIAL ONE (18:36)
[2019-06-23] MEDS ORDERED: ONDANSETRON INJ 4 MG/2 ML VIAL IV PRN (18:39)
[2019-06-23] MEDS ORDERED: LISINOPRIL 10 MG TAB ONE (19:54)
[2019-06-23] MEDS ORDERED: hydroCHLOROthiazide 12.5 MG CAP ONE (19:54)
[2019-06-23] MEDS: GABAPENTIN 100 MG CAP PO SCH ×2 (20:04→21:25)
[2019-06-23] MEDS: ATENOLOL 25 MG TAB PO SCH ×2 (20:05→21:24)
[2019-06-23] MEDS: carBAMazepine 200 MG TAB PO SCH ×2 (20:05→21:25)
[2019-06-23] MEDS: NON-FORMULARY MEDICATION 1 EA MIS (Lisinopril & Hydrochlorothiazi [Lisinopril/Hctz 20-12.5 PO SCH ×2 (20:05→21:23)
[2019-06-23] MEDS ORDERED: PROMETHAZINE HCL INJ 12.5 MG in SODIUM CHLORIDE 0.9% 50ML 50 ML IVPB PRN (20:30)
[2019-06-23] MEDS ORDERED: PROMETHAZINE HCL INJ 25 MG/ML VIAL ONE (20:32)
[2019-06-24] MEDS: LACTATED RINGERS 1,000 ML IVS PRN ×2 (00:44→11:12)
[2019-06-24] MEDS: cefTRIAXone SODIUM 1 GM in SODIUM CHL 0.9% 50ML MIN-BAG+ 50 ML IVPB SCH (02:21)
[2019-06-24] MEDS: KETOROLAC TROMETHAMINE INJ 30 MG/ML VIAL IV PRN (05:32)
[2019-06-24] MEDS: PANTOPRAZOLE SODIUM IV 40 MG VIAL IV SCH (05:41)
[2019-06-24] MEDS ORDERED: LISINOPRIL 10 MG TAB ONE (08:03)
[2019-06-24] MEDS ORDERED: hydroCHLOROthiazide 12.5 MG CAP ONE (08:03)
[2019-06-24] MEDS ORDERED: hydroCHLOROthiazide 12.5 MG CAP PO SCH (09:00)
[2019-06-24] MEDS ORDERED: LEVOTHYROXINE SODIUM 0.075 MG TAB PO SCH (09:00)
[2019-06-24] MEDS ORDERED: LISINOPRIL 10 MG TAB PO SCH (09:00)
[2019-06-24] MEDS: carBAMazepine 200 MG TAB PO SCH ×2 (09:32→14:21)
[2019-06-24] MEDS: ATENOLOL 25 MG TAB PO SCH (09:32)
[2019-06-24] MEDS: GABAPENTIN 100 MG CAP PO SCH (09:32)
[2019-06-24] MEDS ORDERED: ONDANSETRON ODT 8 MG TAB SL PRN (14:14)
[2019-06-24] MEDS ORDERED: ONDANSETRON 4 MG TAB PO ONE (14:22)
[2019-06-24 14:57] VITALS: BP 128/62; TEMP 98.2; O2SAT 98
--- NOTE | 2019-06-28 14:26 | DS ---
SUPERVISING PHYSICIAN: Haile Roca MD ADMISSION DIAGNOSIS: 1. Abdominal pain. 2. Distended gallbladder with abnormal transaminases and lipase with concern for gallbladder disease and/or early pancreatitis. 3. Urinary tract infection. 4. Hypertension, controlled. 5. History of trigeminal neuralgia. 6. Hypothyroidism. DISCHARGE DIAGNOSIS: 1. Abdominal pain secondary to biliary colic. 2. Elevated liver transaminases, uncertain etiology, possibly due to biliary colic, needing further followup, likely due to nonalcoholic fatter liver disease. 3. Viral gastroenteritis. 4. Hypertension, controlled. 5. History of trigeminal neuralgia. 6. Hypothyroidism. REASON FOR HOSPITALIZATION: This is a 58-year-old female who came to the Emergency Room with abdominal pain. She is primarily Georgian-speaking only. Her primary care physician is Dr. Murdock at [facility]. Apparently, she states she has had diarrhea/loose bowel movements for the last 5 days or so. She denies any fever, but developed some abdominal pain in a band- like manner around the epigastric area, left and right upper quadrants. In the Emergency Room, she was seen and had a CT of the abdomen. The CT of the abdomen showed findings suggestive of mild enteritis involving the proximal small bowel and distended gallbladder. Lab showed a normal white count, however, there was mild elevation in transaminases at 64 on the AST and 78 on the ALT. Alkaline phosphatase 142, lipase 56, normal amylase. Urinalysis showed 10 to 20 WBCs as well and was cloudy. Dr. Fernandez was called from the Emergency Room and he recommended admission and NPO with ultrasound today. At the time of examination, the patient was in no distress. She did receive some Toradol in the Emergency Room and I resumed Toradol for pain control. In the event that she needs to have a HIDA scan, she cannot have any narcotic use. LABORATORY: CBC was within normal limits. Chemistry on discharge and admission showed normal electrolytes. AST and ALT were still elevated, but returning to baseline levels. Troponins were less than 0.02. Lipid profile was within normal limits. Lipase was normal at 56 and prior to discharge was 32. TSH was normal at 2.72. MICROBIOLOGY: Urine culture showed just normal kelsy. RADIOLOGY: She had a abdominopelvic CT with contrast per radiologic interpretation with findings suggestive of mild enteritis involving the small proximal bowel with distended gallbladder. Please see that report for details. She had an abdominal ultrasound that showed fatty liver, but not enlarged. Normal caliber of the ducts. Gallbladder was distended, but no stone or sludge noted. There was no wall thickening or fluid, nontender. Pancreas and left kidney unremarkable. Please see that report for details. HOSPITAL COURSE: Ms. Live was admitted for abdominal pain. She was seen in consultation by Dr. Porter. No findings of acute cholecystitis were noted and it was thought she was probably she having some biliary colic and needs further workup as an outpatient. She was no longer having any pain prior to discharge, had no nausea or vomiting. She tolerated advancement of her diet and was ambulating and it was felt she could followup as an outpatient for continued outpatient treatment measures. PHYSICAL EXAMINATION ON DISCHARGE: VITAL SIGNS: Temperature 98.2. Pulse 84. Blood pressure 128/62. Respiratory rate 18. Saturation 98% on room air. GENERAL: The patient is resting comfortably and appears to be in no acute distress. CHEST: Lungs clear to auscultation. HEART: Regular rate and rhythm. ABDOMEN: Soft, nontender. Positive bowel sounds. EXTREMITIES: Without edema. NEUROLOGIC: Alert and oriented times 3. PLAN: Selam was discharged on 06/24/19 with instructions to followup with Dr. Porter and Dr. Murdock at [facility] within the next week. She was to resume her home medications as instructed and given warnings to return to the hospital should she have any concerning symptoms or worsening of her symptoms. Diet was to follow a low fat, low cholesterol diet. Activity to increase as tolerated. Medications on discharge include all medications as prior to hospitalization. No new medications were prescribed. CONDITION ON DISCHARGE: Stable and improved. DISPOSITION: The patient is discharged to care of family members. #[id number] [facility]
--- NOTE | 2019-07-19 15:17 | CONS ---
DATE OF CONSULTATION: 06/23/19 REASON FOR CONSULTATION: Abdominal pain and pancreatitis. HISTORY OF PRESENT ILLNESS: The patient is a 58-year-old woman who presented to the Emergency Department yesterday with abdominal pain. She is Kenyan speaking and I was able to speak Kenyan with her. She had also had some diarrhea for 3 to 4 days, non-bloody. No fevers, no chills. No known precipitating factors. Her pain is in the epigastric area, radiating to the back and also both upper quadrants. She had no known precipitating factors or alleviating factors and no history of similar symptoms. PAST MEDICAL HISTORY: 1. Hypertension. 2. Hypothyroidism. PAST SURGICAL HISTORY: None. CURRENT MEDICATIONS: 1. Atenolol. 2. Tegretol. 3. Neurontin. 4. Synthroid. 5. Lisinopril. 6. Tramadol. ALLERGIES: NO KNOWN ALLERGIES. FAMILY HISTORY: Hypertension. SOCIAL HISTORY: She denies any illicit habits. REVIEW OF SYSTEMS: As above. GENERAL: She denies any fevers or chills. HEENT: No headache, no visual changes, no sore throat. No history of scleral icterus. RESPIRATORY: No cough or wheeze. CARDIOVASCULAR: No chest pain or palpitations. GASTROINTESTINAL: As above. GENITOURINARY: No frequency, dysuria or hematuria. EXTREMITIES: No complaints. NEUROLOGIC: No complaints. PHYSICAL EXAMINATION: VITAL SIGNS: Afebrile. Non-tachycardic. Blood pressure normal. Saturation 95% on room air. GENERAL: She is conscious, alert, in no distress. HEENT: Normocephalic, atraumatic. Pupils equal and react to light. Sclerae anicteric. Oral mucosa moist. NECK: Supple. No adenopathy, JVD or thyromegaly. CHEST: Clear. HEART: Regular. ABDOMEN: Soft. No significant tenderness. Mild epigastric tenderness, but no rebound or guarding. No Price's sign. No CVA tenderness. No evidence of hernias. EXTREMITIES: No cyanosis, clubbing or edema. LABORATORY: White blood cell count 7, hematocrit 42, platelet count 261. BMP is normal. Glucose 122. AST and ALT slightly elevated. Alkaline phosphatase 142. Total bilirubin 0.3. Lipase elevated at 56. Urinalysis shows no evidence of acute infection. RADIOLOGY: CT of abdomen and pelvis showed mild enteritis of proximal small bowel. On my examination, this impression is correct, but no obvious acute enteritis. There is no evidence of pancreatitis on this exam. The gallbladder is distended, but no evidence of pericholecystic fluid or gallstones. Abdominal ultrasound should be done to followup which showed fatty liver, distended gallbladder, no stones, no sludge and normal common bile duct. IMPRESSION: 1. Pancreatitis, possibly related to tiny stones or sludge versus other. RECOMMENDATION: At this time, the patient is not in acute distress, did not have evidence of acute cholecystitis and I recommend observation and restricted to liquids at this time. I discussed this with her. All questions were answered. At first it was thought that the gallbladder may need to be removed but without evidence of stones and first encounter with the patient, I am not sure that this is appropriate at this time. She will be kept under observation. [facility][id number] [facility]
== END 2019-06-24 14:43 | disposition home or self-care (01) ==
LOC: ER 22:05 → MS 06-23 02:49
PROVIDERS: ADMIT Nurse Practitioner; ATTEND Nurse Practitioner Family
DX: K52.9 Noninfective gastroenteritis and colitis, unspecified (principal); K82.8 Other specified diseases of gallbladder; R74.0 Nonspecific elevation of levels of transaminase and lactic acid dehydrogenase [LDH]; N39.0 Urinary tract infection, site not specified; I10 Essential (primary) hypertension; G50.0 Trigeminal neuralgia; E03.9 Hypothyroidism, unspecified; K76.0 Fatty (change of) liver, not elsewhere classified; Z79.890 Hormone replacement therapy; Z79.899 Other long term (current) drug therapy; Z82.49 Family history of ischemic heart disease and other diseases of the circulatory system
CPT/HCPCS: 96361 ×2; 96365; 96375; 96376 ×2; J0696 ×3; J1885 ×3; J2405; J2550; A4216 ×2; J7050 ×2; J7120 ×4; 80053 ×2; 87086; 80061; 36415 ×4; 82150; 81001; 85025 ×2; 83690 ×2; 84443; 84484; 74177; 76700; 99285; 93005; G0378

== ENCOUNTER 2019-07-13 23:14 | Emergency (ER) | payer SELFPAY ==
[2019-07-13] MEDS ORDERED: ONDANSETRON INJ 4 MG/2 ML VIAL IV ONE (23:35)
[2019-07-13] MEDS ORDERED: MORPHINE SULFATE INJ 10 MG/ML VIAL IV ONE (23:35)
--- NOTE | 2019-07-13 23:38 | ED.PDOC ---
History of Present Illness - General Time Seen by Provider: 07/13/19 23:22 Source: patient, RN notes reviewed, Vital Signs reviewed, java technical architect - Nurse Exam Limitations: no limitations - History of Present Illness Initial Comments: Pt says she's had mid back pain since this morning. She describes it as sharp. She says she also has mild RUQ discomfort. No N/V/D. Pt without appetite. Pt says eating does not worsen pain. Pt says she was diagnosed with pancreatitis in past, and says the pain is somewhat similar. She says pain never really went away from that dx of pancreatitis. Pt denies urinary or bowel symptoms. Timing/Duration: 7-24 hours Quality/Severity: moderate Back Pain Location: T-spine Back Pain Radiation: other - To right upper abdomen Method of Injury/Prior Injury: unknown Improving Factors: nothing Worsening Factors: nothing Associated Symptoms: denies symptoms Allergies/Adverse Reactions: Allergies NO KNOWN ALLERGY Allergy (Verified 05/28/17 02:32) Home Medications: Ambulatory Orders Gabapentin [Neurontin] 100 mg PO TID 08/17/15 Carbamazepine [Tegretol] 200 mg PO QID 06/06/17 Tramadol HCl [Ultram] 50 mg PO Q6H PRN #30 tab 06/06/17 Lisinopril & Hydrochlorothiazi [Lisinopril/Hctz 20-12.5 mg] 1 tab PO DAILY #30 tab 01/09/19 Atenolol [Tenormin] 25 mg PO DAILY 06/23/19 Levothyroxine Sodium [Synthroid] 75 mcg PO DAILY 06/23/19 Ondansetron Tab [Zofran Tab] 4 mg PO Q6HR #12 tab 06/24/19 Ondansetron Odt [Zofran ODT] 4 mg PO Q6HR #14 tab 07/14/19 Tramadol HCl [Ultram] 50 mg PO Q6HR #20 tab 07/14/19 Review of Systems - Review of Systems Constitutional: States: no symptoms reported. Denies: chills, fever EENTM: Denies: nose pain, nose congestion, throat pain, throat swelling Respiratory: Denies: cough, short of breath, wheezing Cardiology: Denies: chest pain, palpitations, syncope Gastrointestinal/Abdominal: States: abdominal pain, other - No appetitie; pain is not worsened with eating. Denies: constipation, diarrhea, nausea, vomiting Genitourinary: Denies: dysuria, frequency, hematuria, pain Musculoskeletal: States: no symptoms reported Skin: States: no symptoms reported Neurological: States: no symptoms reported Past Medical History (General) - Patient Medical History Hx Seizures: No Hx Stroke: No Hx Dementia: No Hx Asthma: No Hx of COPD: No Hx Cardiac Disorders: No Hx Congestive Heart Failure: No Hx Pacemaker: No Hx Hypertension: Yes Hx Thyroid Disease: No Hx Diabetes: No Hx Gastroesophageal Reflux: No Hx Renal Disease: No Hx Cancer: No Hx of HIV: No Hx Hepatitis C: No Hx MRSA: No - Vaccination History Hx Tetanus, Diphtheria Vaccination: No Hx Influenza Vaccination: No Hx Pneumococcal Vaccination: No - Social History Hx Tobacco Use: No Hx Chewing Tobacco Use: No Hx Alcohol Use: No Hx Substance Use: No Hx Substance Use Treatment: No Hx Depression: No Hx Physical Abuse: No Hx Emotional Abuse: No Hx Suspected Abuse: No - Female History Patient : No Family Medical History - Family History Father Family History: Unknown Hx Family Asthma: No Hx Family Congestive Heart Failure: No Hx Family Hypertension: No Hx Family Stroke: No Hx Cardiac Disease: No Son Family History: No Known Physical Exam - Physical Exam General Appearance: Alert, Obvious distress - mild Eyes, Ears, Nose, Throat Exam: normal ENT inspection Cardiovascular/Respiratory: regular rate, rhythm, no M/R/G, normal peripheral pulses, normal breath sounds, no respiratory distress Gastrointestinal/Abdominal: normal bowel sounds, non tender, soft, no organomegaly, other - Pt c/o RUQ pain, but abd exam WNL's Back Exam: normal inspection, no CVA tenderness, no vertebral tenderness, other - thoracic tenderness, bilateral, ~T8 level Extremity Exam: no evidence of injury, normal range of motion, non-tender, no pedal edema Neurologic: alert, normal mood/affect, oriented x 3 Skin Exam: normal color Progress - Progress Progress: 07/14/19 00:13 All labs reviewed. No significant abnormalities suggesting emergent issue. Considering pt has no LUQ pain, nl abdominal exam, and nl lipase, pancreatitis does not seem clinically likely. This also makes acute cholecysitis unlikely. 07/14/19 00:[address] A/P 06/22 that showed distended GB and possible enteritis (of proximal small bowel). Pt had abdominal US 06/23 that showed distended GB without stones and without signs of cholecystitis. Pt had fatty liver that was not enlarged. There were no findings of acute pancreatitis on either study. Pt's lipase was 56, which is minimal elevation and not a clear indication of pancreatitis considering CT did not demonstrate it. 07/14/19 00:18 D/w pt results and plan for d/c. I encouraged pt to f/u with a PCP and possibly a general surgeon to evaluate GB. Departure - Departure Clinical Impression: Thoracic back pain, Distended Gallbladder, recently diagnosed, Right upper quadrant abdominal pain Time of Disposition: 00:23 Disposition: Discharge to Home or Self Care Condition: Good Instructions: DI for Back Spasm Diet: resume usual diet Activity: increase activity as tolerated Referrals: Jax Murdock MD [Primary Care Provider] - 1 Week Prescriptions: Ondansetron Odt [Zofran ODT] 4 mg PO Q6HR #14 tab Tramadol HCl [Ultram] 50 mg PO Q6HR #20 tab Home Medications: Ambulatory Orders Gabapentin [Neurontin] 100 mg PO TID 08/17/15 Carbamazepine [Tegretol] 200 mg PO QID 06/06/17 Tramadol HCl [Ultram] 50 mg PO Q6H PRN #30 tab 06/06/17 Lisinopril & Hydrochlorothiazi [Lisinopril/Hctz 20-12.5 mg] 1 tab PO DAILY #30 tab 01/09/19 Atenolol [Tenormin] 25 mg PO DAILY 06/23/19 Levothyroxine Sodium [Synthroid] 75 mcg PO DAILY 06/23/19 Ondansetron Tab [Zofran Tab] 4 mg PO Q6HR #12 tab 06/24/19 Ondansetron Odt [Zofran ODT] 4 mg PO Q6HR #14 tab 07/14/19 Tramadol HCl [Ultram] 50 mg PO Q6HR #20 tab 07/14/19
[2019-07-14 00:21] VITALS: O2SAT 98
[2019-07-14 00:48] VITALS: BP 156/80; TEMP 97.8
== END 2019-07-14 00:47 | disposition home or self-care (01) ==
LOC: ER 23:14
DX: M54.6 Pain in thoracic spine (principal); K82.8 Other specified diseases of gallbladder; R10.11 Right upper quadrant pain; I10 Essential (primary) hypertension; Z79.899 Other long term (current) drug therapy; Z87.19 Personal history of other diseases of the digestive system
CPT/HCPCS: 80053; 81001; 83605; 83690; 85025; J2270; J2405

== ENCOUNTER → 2019-07-22 | Outpatient (CLI) | payer SELFPAY | LOC: YCFC.O 16:54 | PROVIDERS: ATTEND Family Medicine | DX: K83.9 Disease of biliary tract, unspecified (principal); I10 Essential (primary) hypertension ==

== ENCOUNTER → 2019-08-04 | Outpatient (CLI) | payer SELFPAY ==
--- NOTE | 2019-08-05 11:18 | NM ---
EXAM DESCRIPTION: Hepatobiliar w/CCK: Nuclear Medicine. CLINICAL HISTORY: DISORDER OF BILIARY TRACT COMPARISON: Ultrasound abdomen June 2019. CT scan abdomen and pelvis June 2019. MR scans of the lumbar spine and brain on this visit. TECHNIQUE: Patient was given 8.2 mCi of technetium 99 M mebrofenin (Choletec) radiopharmaceutical IV. Anterior gamma camera images were obtained of the right upper quadrant at 5 minute intervals for one hour . The patient was then given 1.3 mcg CCK IV infusion over 30-minute interval. Gallbladder ejection fraction was evaluated by measuring change in radioactivity in the gallbladder, over 30 min interval. FINDINGS: After administration of radiopharmaceutical IV, almost complete visualization of the liver. Small photopenic area in the mid left lobe consistent with falciform ligament. Timely visualization of intrahepatic and extrahepatic ducts and gallbladder. After CCK infusion began, patient experienced nausea and cramping. After 10 minutes, activity decreased in the gallbladder by 13 %. 27% decrease in activity at 20 minutes. 24% decrease in activity at 30 minutes. IMPRESSION: 1. No intrahepatic or extrahepatic biliary obstruction. Timely visualization of intrahepatic and extrahepatic ducts. 2. Gallbladder ejection fraction is significantly abnormal. This could be due to chronic cholecystitis or gallbladder dyskinesia. Electronically signed by: Toney Lincoln MD 08/05/2019 11:17 AM IRRIGATION EQUIPMENT REMOVER
--- NOTE | 2019-08-05 11:32 | MRI ---
EXAM DESCRIPTION: Lumbar Spine w/o Contrast : Magnetic Resonance Imaging. CLINICAL HISTORY: LOW BACK PAIN COMPARISON: MRI scan of the brain and radionuclide hepatobiliary imaging on this visit. TECHNIQUE: Multiplanar, multiple standard sequences, non contrast MRI, lumbar spine. FINDINGS: L5-S1: The disc is well visualized on axial T2 series 501, image 3. Disc desiccated with posterior broad-based bulge. Bilateral hyperintense T2 weighted foci of annular tears in the posterior margin. Bilaterally shortened pedicles. Bilateral hypertrophic posterior flavum ligaments. AP canal diameter 10 mm. Bilateral moderate foraminal narrowing. L4-L5: Minimal disc desiccation and tiny posterior bulge. Mild degenerative hypertrophy of the posterior elements: Facet joints and flavum ligaments. Bilaterally shortened pedicles. AP canal diameter 12 mm. Mild bilateral foraminal narrowing. L3-L4: Minimal disc desiccation with disc space maintained. Mild degenerative hypertrophy of the posterior elements. Bilaterally shortened pedicles. Canal diameter 10 mm. Mild bilateral foraminal narrowing. L2-L3: Disc space maintained with normal disc signal. Posterior elements unremarkable. Canal and foramina are patent. L1-L2: Disc space maintained with normal disc signal. Posterior elements unremarkable. Canal and foramina are patent. Conus terminates at this level. T12-L1: Normal signal in the disc with disc space maintained. Posterior elements unremarkable. Canal and foramina are patent. No scoliosis. Paravertebral soft tissues unremarkable.. Distal cord normal signal and caliber. Otherwise normal marrow signal in the remaining vertebral bodies and the posterior elements. Vertebral bodies are not compressed at any level. IMPRESSION: 1. Canal narrowing at some levels secondary to hypertrophic degenerated posterior elements and disc bulge and bilaterally shortened pedicles. 2. Borderline mild central canal stenosis multifactorial at L5-S1 and L3-4. Bilateral annular fissures in the posterior disc margin at L5-S1. No foraminal stenosis at any level. No abnormal marrow edema. Electronically signed by: Toney Lincoln MD 08/05/2019 11:31 AM PLASTIC TUBING INSULATION SUPERVISOR
--- NOTE | 2019-08-05 12:02 | MRI ---
EXAM DESCRIPTION: Brain w/wo Contrast: Magnetic Resonance Imaging. CLINICAL HISTORY: 58 years Female HEADACHE COMPARISON: MRI scan of the brain without and with gadolinium IV contrast June 2015. TECHNIQUE: Multiplanar, high-field MRI, multiple conventional sequences, without and with gadolinium IV contrast, 1 mL per 5 kg body weight. No adverse reactions. Multiple axial diffusion sequences. FINDINGS: Small foci of bright FLAIR and T2-weighted signal in the bilateral subcortical white matter frontal and parietal lobes more numerous left than right. Similar appearance on the prior study. No abnormal white matter and periventricular signal or signal in the centrum semiovale.. No hemorrhage, no abnormal enhancement, and no mass effect. Normal signal in the bilateral basal ganglia. No hemorrhage, no cerebral edema, no mass-effect. Normal contrast enhancement. Normal signal in the brainstem and cerebellar hemispheres. No hemorrhage, no cerebral edema, no mass-effect. Normal contrast enhancement. Concordance of the diffusion and non-diffusion sequences with no evidence of acute or subacute infarction. Cortical sulci, ventricles, and other CSF spaces, and the subdural spaces are normally configured.. No effacement or displacement. No midline shift. No extra-axial hemorrhage. Normal contrast enhancement. Normal flow signal void in the major vessels of the [place], and the venous sinuses. IACs are symmetric bilaterally. Normal signal in the bilateral mastoid air cells. No mass effect in the bilateral Cerebellopontine angles. Normal contrast enhancement. Pituitary gland occupies all of the sella. Normal contrast enhancement. Base of the cerebellar tonsils is at the level of the foramen magnum. Normal signal in the paranasal sinuses. The bony calvarium is intact. IMPRESSION: 1. Bilateral scattered foci of subcortical white matter lesions in the frontal and parietal lobes, slightly more on the left. Stable since the prior study with no hemorrhage, no mass effect, and no abnormal contrast enhancement. Most likely related to aging and early cerebral microvascular disease. 2. Normal noncontrast MRI diffusion study with no evidence of acute or subacute significant ischemia or infarction. Electronically signed by: Toney Lincoln MD 08/05/2019 12:00 PM [facility]
== END ==
LOC: NM 09:00
PROVIDERS: ATTEND Family Medicine
DX: K87 Disorders of gallbladder, biliary tract and pancreas in diseases classified elsewhere (principal); R90.82 White matter disease, unspecified; M51.86 Other intervertebral disc disorders, lumbar region; M51.87 Other intervertebral disc disorders, lumbosacral region; M48.061 Spinal stenosis, lumbar region without neurogenic claudication; M48.07 Spinal stenosis, lumbosacral region; R51 Headache
CPT/HCPCS: 70553; 72148; 78227; A9537

== ENCOUNTER → 2019-08-10 | Outpatient (CLI) | payer SELFPAY | LOC: LAB.O 10:25 | PROVIDERS: ATTEND Family Medicine | DX: M54.16 Radiculopathy, lumbar region (principal); I10 Essential (primary) hypertension ==

== ENCOUNTER → 2019-08-11 | Outpatient (CLI) | payer SELFPAY ==
--- NOTE | 2019-08-11 13:53 | RAD ---
EXAM DESCRIPTION: Shoulder,Right 2 or More Views CLINICAL HISTORY: 58 years Female, SHOULDER PAIN COMPARISON: None. Findings: Four views/radiographs Location: Right shoulder No acute fracture or dislocation. Mild acromioclavicular osteoarthritis. Soft tissues are unremarkable. Subacromial space is maintained. Visualized chest is clear. Glenohumeral relationship maintained. Tiny glenoid osteophytes. IMPRESSION: No evidence of acute process in the right shoulder. Electronically signed by: Benjy Felton MD 08/11/2019 1:[address] [facility]
== END ==
LOC: RAD 07:39
PROVIDERS: ATTEND Orthopaedic Surgery
DX: M25.511 Pain in right shoulder (principal)

== ENCOUNTER 2019-08-18 05:45 | Day surgery (SDC) | payer SELFPAY ==
--- NOTE | 2019-08-17 12:08 | RAD ---
EXAM DESCRIPTION: Chest,2 Views CLINICAL HISTORY: 58 years Female, pre op COMPARISON: 09 January 2019 TECHNIQUE: PA/lateral FINDINGS: A poor inspiratory effect is noted. The heart is within range of normal. No pleural fluid is seen. IMPRESSION: Poor inspiratory effect otherwise unremarkable chest. Electronically signed by: Tyrell Arnold MD 08/17/2019 12:06 PM [facility]
[2019-08-18] MEDS ORDERED: KETOROLAC TROMETHAMINE INJ 30 MG/ML VIAL ONE (07:00)
[2019-08-18] MEDS ORDERED: raNITIdine HCL INJ 25 MG/ML VIAL ONE (07:00)
[2019-08-18] MEDS ORDERED: SODIUM CHLORIDE 0.9% 50 ML VIAL ONE (07:00)
[2019-08-18] MEDS ORDERED: ePHEDrine SULF 50 MG/ML ONE (07:00)
[2019-08-18] MEDS ORDERED: LIDOCAINE 1% 10 ML VIAL INJ ONE (07:00)
[2019-08-18] MEDS ORDERED: DEXAMETHASONE INJ 10 MG/ML VIAL ONE (07:00)
[2019-08-18] MEDS ORDERED: PROPOFOL 200 MG/20 ML VIAL IV ONE (07:00)
[2019-08-18] MEDS ORDERED: LACTATED RINGERS 1,000 ML ONE ×2 (11:20→14:01)
[2019-08-18] MEDS ORDERED: MIDAZOLAM INJ 2 MG/2 ML VIAL ONE (11:34)
[2019-08-18] MEDS ORDERED: ROCURONIUM BROMIDE 10 MG/ML VIAL ONE (11:34)
[2019-08-18] MEDS ORDERED: fentaNYL CITRATE INJ 50 MCG/ML AMP ONE (11:34)
[2019-08-18] MEDS ORDERED: DEXMEDETOMIDINE HCL 200 MCG/2 ML INJ IV ONE (11:34)
[2019-08-18] MEDS: BUPIVACAINE 0.5% W/EPI 30 ML VIAL INJ ONE ×2 (11:53→12:23)
[2019-08-18] MEDS ORDERED: SUGAMMADEX SODIUM 200 MG/2 ML VIAL IV ONE (12:39)
[2019-08-18] MEDS: HYDROmorphone HCL INJ 2 MG/ML VIAL ONE ×6 (13:20→14:20)
--- NOTE | 2019-08-18 13:27 | OP ---
DATE OF PROCEDURE: 08/18/19 PREOPERATIVE DIAGNOSIS: 1. Biliary dyskinesia. POSTOPERATIVE DIAGNOSIS: 1. Biliary dyskinesia. PROCEDURE: 1. Laparoscopic cholecystectomy. SURGEON: Haile Porter MD. ANESTHESIA: General and local. FINDINGS: Distended gallbladder, normal anatomy. COMPLICATIONS: None. ESTIMATED BLOOD LOSS: Minimal. SPECIMEN: Gallbladder. CONDITION: Stable. PLAN: Discharge. INDICATION: As stated. PROCEDURE: General anesthesia was induced. The patient was prepped and draped in sterile fashion. Marcaine 0.5% with epinephrine was used at all incision sites. While maintaining upward traction, a antwan was made near the base of the umbilicus. Veress needle was introduced. There was free flow of fluid into the peritoneal cavity which was insufflated to an appropriate level with CO2 gas. The 5 mm trocar was placed followed by the camera. There was no evidence of bleeding or bowel injury. The patient was positioned and subxiphoid and lateral ports were placed under direct visualization without difficulty. The gallbladder fundus was easily deficiency. It was distended, but grasped and retracted. The infundibulum was grasped. The infundibular structures were dissected free. The duct was triply ligated. The artery was then more clearly dissected out and triply ligated. This was a small lateral branch. The gallbladder was then dissected off the fossa. It was very thin and came right off, so there was a little oozing from the fossa that easily was taken of with cautery. The gallbladder was then removed through the subxiphoid incision without difficulty. The areas was irrigated. All aspirate was clear. It remained hemostatic under low pressure. The subxiphoid fascia was then closed with 0 Vicryl using the suture passer. It was airtight and non-bleeding. The remaining trocars were removed. There was no bleeding from the trocar sites. The wounds were irrigated and closed with Monocryl. Dressings were applied. The patient was awakened and taken to Recovery in stable condition to be discharged. #[id number] cc: Jax Murdock MD [facility]
[2019-08-18] MEDS ORDERED: HYDROcodone 5MG/APAP 325MG 1 EA TAB ONE ×2 (14:57→16:45)
[2019-08-18 15:10] VITALS: BP 158/72; TEMP 97.9; O2SAT 94
== END 2019-08-18 17:12 | disposition home or self-care (01) ==
LOC: AMB 05:45
PROVIDERS: ATTEND Surgery
DX: K81.1 Chronic cholecystitis (principal); I10 Essential (primary) hypertension; F41.9 Anxiety disorder, unspecified; K59.00 Constipation, unspecified; K21.9 Gastro-esophageal reflux disease without esophagitis; Z79.899 Other long term (current) drug therapy
CPT/HCPCS: 00790; 47562; 71046; 93005; A4216; J1100; J1170; J1885; J2250; J2780; J3010; J3490; J7120

== ENCOUNTER → 2019-09-06 | Outpatient (CLI) | payer SELFPAY | LOC: YCFC.O 16:07 | PROVIDERS: ATTEND Family Medicine | DX: R10.13 Epigastric pain (principal); L65.9 Nonscarring hair loss, unspecified ==

== ENCOUNTER → 2019-09-27 | Outpatient (CLI) | payer SELFPAY | DX: M75.101 Unspecified rotator cuff tear or rupture of right shoulder, not specified as traumatic (principal); M19.011 Primary osteoarthritis, right shoulder; M62.511 Muscle wasting and atrophy, not elsewhere classified, right shoulder; M25.411 Effusion, right shoulder; M75.21 Bicipital tendinitis, right shoulder; M75.91 Shoulder lesion, unspecified, right shoulder ==